=== PATIENT | female | born 1965 | race Caucasian/White ===

== ENCOUNTER → 2016-08-24 | Outpatient (CLI) | payer OTHER ==
--- NOTE | 2016-08-24 10:58 | US ---
EXAMINATION TYPE: US pelvic complete DATE OF EXAM: 08/24/2016 10:33 AM COMPARISON: Previous study dated 03/13/2015. CLINICAL HISTORY: Previous left ovarian cyst, history of 1 , postmenopausal, 1, para 1. TECHNIQUE: Transvaginal (TV) and Transabdominal (TA) Date of LMP: 5+ years ago EXAM MEASUREMENTS: Uterus: 5.3 x 2.5 x 3.0cm Endometrial Stripe: 0.3cm Right Ovary: not seen Left Ovary: 3.7 x 3.7 x 2.6cm TECHNOLOGIST IMPRESSION: 1. Uterus: Retroverted Slightly heterogeneous without any definite lesions seen at this time 2. Endometrium: wnl 3. Right Ovary: Obscured by overlying bowel gas 4. Left Ovary: 3.1 x 1.9 x 2.9cm cystic area 5. Bilateral Adnexa: wnl 6. Posterior cul-de-sac: small amount of free fluid seen IMPRESSION: Normal pelvic ultrasound. Normal Values: Uterine Length: < 10cm Endometrium: Proliferative (Day 6 ? 14): 4 ? 6mm Secretory (Day 15 ? 28): 7 ? 14mm Post Menopausal (and not symptomatic): up to 8mm Post Menopausal (with vaginal bleeding): upper limits <5mm Post Menopausal with HRT: upper limits 8 - 15mm Post Menopausal with tamoxifen: < 6mm (although 50% of those receiving tamoxifen have been reported t o have thickness >8mm)
== END | disposition home or self-care (01) ==
LOC: RADUSWWP 10:02
PROVIDERS: ATTEND Obstetrics & Gynecology
DX: N83.202 Unspecified ovarian cyst, left side (principal)
CPT/HCPCS: 76830; 76856

== ENCOUNTER → 2016-12-14 | Outpatient (CLI) | payer OTHER ==
--- NOTE | 2016-12-14 16:24 | MR ---
EXAMINATION TYPE: MR lumbar spine wo con DATE OF EXAM: 12/14/2016 12:36 PM COMPARISON: 06/29/2015 HISTORY: lsp disc herniation w/radiculopathy CONTRAST: 0 mL intravenous MultiHance. TECHNIQUE: Multiplanar, multisequence images of the lumbar spine were acquired. FINDINGS: L5-S1: Disc bulge is present without thecal sac compression. No spinal canal stenosis is present. Pr evious central disc bulge appears diminished on the current exam. Neural foramen are patent.. L4-L5: Broad-based disc bulge has moderate anterior thecal sac compression. No AP spinal canal stenos is present. Facet hypertrophy is present. There is moderate left foraminal stenosis. Moderate to harper re right foraminal stenosis present. Some nerve root contact from disc bulging may be present within the spinal canal. Findings appear stable. Previous central subligamentous disc herniation is diminish ed in size. L3-L4: Broad-based disc bulge is present. No spinal canal stenosis is present. Neural foramen are pat ent. L2-L3: Broad-based disc bulge is present. No spinal canal stenosis. No foraminal stenosis. Facet h ypertrophy is present. Some left ligamentum flavum laxity is present.. L1-L2: Left paracentral disc bulge is present. Subligamentous disc extension is present. No cord cont act is evident. No spinal canal stenosis present. Facet hypertrophy of ligamentum flavum laxity is pr esent. Findings are similar to previous exam. T12-L1: There is a tiny right paracentral disc herniation. No spinal canal stenosis present. Neural f oramen are patent. IMPRESSION: 1. 1. Multilevel disc bulges and disc herniations. There is slight diminished size of the thecal sac com pression when compared to 2014. 2. Subligamentous Disc herniations include L1-L2 and L4-5. These appear smaller than comparison 2014. 3. Moderate left and severe right foraminal stenosis L4-5 due to disc bulging. Some impingement of th e exiting nerve root on the left at L4-5 may be present. Correlate with radicular symptoms.
== END | disposition home or self-care (01) ==
LOC: RADMRIMAIN 12:01
PROVIDERS: ATTEND Psychiatry & Neurology Neurology
DX: M99.73 Connective tissue and disc stenosis of intervertebral foramina of lumbar region (principal); M51.16 Intervertebral disc disorders with radiculopathy, lumbar region
CPT/HCPCS: 72148

== ENCOUNTER → 2017-01-17 | Outpatient (CLI) | payer OTHER ==
--- NOTE | 2017-01-17 13:38 | CT ---
EXAMINATION TYPE: CT abdomen wo/w con DATE OF EXAM: 01/17/2017 1:26 PM HISTORY: Alcoholic cirrhosis of liver w/o ascites CT DLP: 1049mGycm Automated Exposure Control for Dose Reduction was Utilized. CONTRAST: CT scan of the abdomen is performed with oral and without and with IV Contrast, patient injected with 100 mL of Omnipaque 300. COMPARISON: None. FINDINGS: Exam is slightly suboptimal as dedicated liver protocol was not utilized, first phase of im aging has contrast in the portal vein and is too late thus for hepatic arterial phase imaging. LUNG BASES: No significant abnormality is appreciated. LIVER/GB: Liver is somewhat small in size with lobulated peripheral nodular contour, imaging characte ristics is consistent with known underlying cirrhosis. No significant biliary dilatation is noted. N o obvious suspicious solid or cystic masses are identified. Main and right and left hepatic portal ve ins appear patent. Hepatic veins appear patent draining into IVC. No surrounding ascites is noted. PANCREAS: No significant abnormality is seen. SPLEEN: Spleen measures 12.1 cm on long axis on coronal image 52 within normal limits ADRENALS: No significant abnormality is seen. KIDNEYS: No significant abnormality is seen. BOWEL: No significant abnormality is seen. LYMPH NODES: No greater than 1cm abdominal lymph nodes are appreciated. There are prominent but subce ntimeter lymph nodes in the retroperitoneum with heterogeneous fat stranding near level of aorta and IVC, etiology uncertain. Area can be followed. OSSEOUS STRUCTURES: There is multilevel spurring and disc space narrowing with vacuum disc phenomenon throughout the visualized thoracolumbar spine, findings most pronounced at L4-L5 level. OTHER: There is mild to moderate calcified aftereffect change of aorta extending into pelvic branch v essels. IMPRESSION: Slightly suboptimal study, cirrhotic liver without obvious worrisome mass or ductal dilat ation identified. No ascites is evident currently.
[2017-01-17 14:02] LABS: Anisocytosis Slight; CH 31.3; CHCM 31.9; HCT 38.4 % (34.0-46.0); HDW 2.45; HGB 12.4 gm/dL (11.4-16.0); MCH 31.8 pg (25.0-35.0); MCHC 32.2 g/dL (31.0-37.0); MCV 98.7 fL (80.0-100.0); Macrocytosis Slight; Mean Platelet Volume 7.3; RBC 3.89 m/uL (3.80-5.40); RDW 17.4 % (11.5-15.5); WBC 4.4 k/uL (3.8-10.6)
[2017-01-17 14:06] LABS: ALT 49 U/L (9-52); AST 85 U/L (14-36); Alkaline Phosphatase 117 U/L (38-126); Anion Gap 11 mmol/L; Blood Urea Nitrogen 13 mg/dL (7-17); Calcium 9.3 mg/dL (8.4-10.2); Carbon Dioxide 24 mmol/L (22-30); Chloride 99 mmol/L (98-107); Glucose 91 mg/dL (74-99); Non-African American GFR(MDRD) >60 (>60 ml/min/1.73 sqM); Potassium 3.7 mmol/L (3.5-5.1); Sodium 134 mmol/L (137-145); Total Protein 7.1 g/dL (6.3-8.2)
== END | disposition home or self-care (01) ==
LOC: RADCTMAIN 11:56
DX: K74.60 Unspecified cirrhosis of liver (principal)
CPT/HCPCS: 80053; 85027; 74170; 36415; Q9967

== ENCOUNTER → 2017-03-21 | Outpatient (CLI) | payer OTHER ==
--- NOTE | 2017-03-23 10:27 | MM ---
Reason for exam: screening (asymptomatic). Last mammogram was performed 1 year ago. History: Patient is postmenopausal and had first child at age 37. Took hormonal contraceptives for 5 years beginning at age 38. Physical Findings: A clinical breast exam by your physician is recommended on an annual basis and results should be correlated with mammographic findings. MG Screening Mammo w CAD Bilateral CC and MLO view(s) were taken. Prior study comparison: March 17, 2016, bilateral MG screening mammo w CAD. March 02, 2015, bilateral MG screening mammo w CAD. February 28, 2014, bilateral MG screening mammo w CAD. There are scattered fibroglandular densities. No significant changes when compared with prior studies. ASSESSMENT: Negative, BI-RAD 1 RECOMMENDATION: Routine screening mammogram of both breasts in 1 year.
== END | disposition home or self-care (01) ==
LOC: RADMAMWWP 10:11
PROVIDERS: ATTEND Family Medicine
DX: Z12.31 Encounter for screening mammogram for malignant neoplasm of breast (principal)

== ENCOUNTER → 2017-03-28 | Outpatient (CLI) | payer OTHER ==
--- NOTE | 2017-03-28 19:55 | MR ---
EXAMINATION TYPE: MR cervical spine wo con DATE OF EXAM: 03/28/2017 COMPARISON: NONE HISTORY: Neck pain x3 months TECHNIQUE: Multiplanar, multisequence images of the cervical spine were acquired. Bone marrow signal is within n ormal limits. There is reversal of the usual cervical lordosis with a focal kyphosis from C3 through C7 with the apex at C4-C5 intervertebral disc space. Cervical cord maintains normal signal. Visualize d portions of the posterior fossa are unremarkable. Lumbar vertebral body heights are maintained. C2-C3: No evidence for degenerative disc disease. No disc bulge/herniation or protrusion. No Canal stenosis. Foramina are patent bilaterally. C3-C4: There is slight disc uncovering from the reversal of the usual cervical lordosis with narrowin g of the ventral subarachnoid space, however there is preservation of CSF anterior to the cervical co rd and no significant spinal canal stenosis is present. C4-C5: There is a left paracentral disc herniation extending into the lateral recess and left neural foramen creating moderate left neural foraminal narrowing. This is superimposed upon a broad-based di sc bulge and there is resultant mild spinal canal stenosis with obliteration of the ventral subarachn oid CSF. Disc bulge abuts the cervical cord without abnormal signal of the cervical cord. No right ne uroforaminal narrowing. Ligamentum flavum buckling also contributes to mild spinal canal stenosis. C5-C6: Disc osteophyte complex and uncovertebral hypertrophy creating mild bilateral neural foraminal narrowing and minimally narrow the ventral subarachnoid space however there is preservation of CSF a nterior to the cervical cord. However there is ligamentum flavum buckling, mildly narrowing the spina l canal. C6-C7: No evidence for degenerative disc disease. No disc bulge/herniation or protrusion. No Canal stenosis. Foramina are patent bilaterally. C7-T1: No evidence for degenerative disc disease. No disc bulge/herniation or protrusion. No Canal stenosis. Foramina are patent bilaterally. IMPRESSION: 1. Left paracentral disc herniation at C4-C5 extending into the left lateral recess and neural forame n creating moderate left neural foraminal narrowing. Ligamentum flavum buckling and uncovertebral hyp ertrophy contribute to mild central canal stenosis. 2. Mild spinal canal stenosis at C5-C6 secondary to disc osteophyte complex and ligamentum flavum buc megan. 3. Reversal of the usual cervical lordosis from C2-3 through C7 with the apex at the C4-C5 interverte bral disc space.
== END ==
LOC: RADMRIMAIN 16:31
PROVIDERS: ATTEND Psychiatry & Neurology Neurology
DX: M48.02 Spinal stenosis, cervical region (principal); M99.71 Connective tissue and disc stenosis of intervertebral foramina of cervical region; M50.221 Other cervical disc displacement at C4-C5 level
CPT/HCPCS: 72141

== ENCOUNTER → 2017-08-10 | Outpatient (CLI) | payer OTHER ==
[2017-08-10 13:42] LABS: ALT 54 U/L (9-52); AST 145 U/L (14-36); Alkaline Phosphatase 199 U/L (38-126); Anion Gap 11 mmol/L; Blood Urea Nitrogen 5 mg/dL (7-17); Calcium 9.1 mg/dL (8.4-10.2); Carbon Dioxide 25 mmol/L (22-30); Chloride 103 mmol/L (98-107); Glucose 97 mg/dL (74-99); Non-African American GFR(MDRD) >60 (>60 ml/min/1.73 sqM); Potassium 3.9 mmol/L (3.5-5.1); Sodium 139 mmol/L (137-145); Total Bilirubin 0.5 mg/dL (0.2-1.3); Total Protein 7.7 g/dL (6.3-8.2)
[2017-08-10 14:06] LABS: Basophils % (A) 1 %; CH 33.8; CHCM 32.3; Eosinophils # (A) 0.1 k/uL (0-0.7); Eosinophils % (A) 2 %; HCT 40.7 % (34.0-46.0); HDW 2.36; HGB 12.9 gm/dL (11.4-16.0); Luc # (Auto) 0.09; Luc % (Auto) 2; Lymphocytes # (A) 0.9 k/uL (1.0-4.8); Lymphocytes % (A) 22 %; MCH 33.2 pg (25.0-35.0); MCHC 31.6 g/dL (31.0-37.0); MCV 105.3 fL (80.0-100.0); Macrocytosis Moderate; Mean Platelet Volume 6.8; Monocytes # (A) 0.4 k/uL (0-1.0); Monocytes % (A) 9 %; Neutrophils # (A) 2.8 k/uL (1.3-7.7); Neutrophils % (A) 65 %; RBC 3.87 m/uL (3.80-5.40); RDW 14.8 % (11.5-15.5); WBC 4.3 k/uL (3.8-10.6); WBC (Perox) 4.13
== END | disposition home or self-care (01) ==
LOC: LABWHC1 12:50
DX: K70.30 Alcoholic cirrhosis of liver without ascites (principal)
CPT/HCPCS: 36415; 80053; 82105; 85025

== ENCOUNTER → 2017-10-16 | Outpatient (CLI) | payer OTHER ==
--- NOTE | 2017-10-16 07:31 | CT ---
EXAMINATION TYPE: CT brain wo con DATE OF EXAM: 10/16/2017 COMPARISON: NONE INDICATION: Head injury, concussion DLP: 1121 mGycm, Automated exposure control for dose reduction was used. CONTRAST: None CT of the brain is performed utilizing 3 mm thick sections through the posterior fossa and 3 mm thick sections through the remaining calvarium. Study is performed within 24 hours of arrival to the hosp [facility]. No abnormal hyperdensity is present to suggest an acute intracranial hemorrhage. No mass lesion is evident. No acute infarcts are evident. Ventricles and sulci are mildly diffusely prominent for the patient age. Paranasal sinuses and mastoid air cells within the [id number] are clear. No temporal horn dilatati on is evident. IMPRESSIONS: 1. Mild atrophy.
== END ==
LOC: RADCTMAIN 07:03
PROVIDERS: ATTEND Psychiatry & Neurology Neurology
DX: Z09 Encounter for follow-up examination after completed treatment for conditions other than malignant neoplasm (principal); G31.9 Degenerative disease of nervous system, unspecified; Z87.820 Personal history of traumatic brain injury
CPT/HCPCS: 70450

== ENCOUNTER → 2018-06-28 | Outpatient (CLI) | payer OTHER ==
--- NOTE | 2018-06-28 14:15 | US ---
EXAMINATION TYPE: US abdomen complete DATE OF EXAM: 06/28/2018 COMPARISON: CT abdomen January 17, 2017 CLINICAL HISTORY: K70.31 Alcoholic cirrhosis of liver with ascites. Hx of ascites EXAM MEASUREMENTS: Liver Length: 16.2 cm Gallbladder Wall: 0.3 cm CBD: 0.4 cm CHD: 0.4 cm Spleen: 12.3 cm Right Kidney: 9.0 x 5.1 x 4.5 cm Left Kidney: 9.7 x 4.8 x 4.1 cm Pancreas: Appears heterogenous Liver: appears lobular in appearance., no prominent masses or lesions seen Gallbladder: sludge seen- best visualized LLD Evidence for sonographic Tucker's sign: neg CBD: wnl CHD: wnl Spleen: Upper limits of normal Right Kidney: wnl Left Kidney: wnl Upper IVC: wnl Abd Aorta: Mid and distal portion obscured by overlying bowel gas Small amount of free fluid seen adjacent to liver The visualized liver is heterogeneously hyperechoic with lobulated peripheral contour. Evaluation fo r focal masses is suboptimal due to the heterogeneity. No intrahepatic ductal dilatation is seen. Fin ding is consistent with known underlying cirrhosis. Trace adjacent ascites is noted. The intrahepatic portion of the IVC and visualized proximal abdominal aorta are within normal limits. There is no ev idence of shadowing mobile cholelithiasis. Dependent nonshadowing mobile density consistent with slu dge is present. Common bile duct is unremarkable. The visualized portions of the pancreas is heterog eneous without suspicious mass or ductal dilatation. The spleen is upper limits of normal in size. Kidneys are symmetric and free of hydronephrosis. No renal lesions are seen. IMPRESSION: Redemonstration of cirrhotic liver with trace perihepatic ascites
== END | disposition home or self-care (01) ==
LOC: RADUSWWP 08:53
DX: K74.60 Unspecified cirrhosis of liver (principal)
CPT/HCPCS: 76700

== ENCOUNTER → 2018-07-18 | Outpatient (CLI) | payer OTHER ==
[2018-07-18 11:49] VITALS: BP 84/65; PULSE 85; RESP 18
--- NOTE | 2018-07-18 14:42 | P.PAINPG ---
Subjective Progress Note Date: 07/18/18 Principal diagnosis: Lumbar radiculopathy, cervical radiculopathy, alcoholism This is a 52-year-old woman who is referred to our clinic by an orthopedic spine surgeon. She was referred for treatment of her lumbar and cervical spine. She reports pain in her back which radiates down her legs at time. She does reports significant pain in her neck. She denies bowel or bladder dysfunction. Her pain intensity worse with activity. Objective - Vital Signs Vital signs: Vital Signs Temp Pulse 85 07/18/18 11:36 Resp 18 07/18/18 11:36 BP 84/65 07/18/18 11:36 Pulse Ox 100 07/18/18 11:36 Intake & Output 07/17/18 07/18/18 07/18/18 18:59 06:59 18:59 Weight 61.235 kg - Exam General: The patient is quite sleepy for this appointment today. Upon entering the exam room she is somewhat difficult to arouse from her sleep. She talks with somewhat of a disheveled voice. There is a smell of alcohol in the room.. Cardiac: Heart is regular in rate and rhythm Respiratory: Clear to auscultation. No audible wheezes. Abdomen: Soft nontender nondistended. Musculoskeletal: Strength is normal bilaterally in the upper and lower extremities. Sensation is normal bilaterally in the upper and lower extremities. Reflexes are preserved and symmetric bilaterally. Straight leg raise is negative bilaterally. Assessment and Plan (1) Lumbar radiculopathy Narrative/Plan: Plan of Care 1. Medications: No medications we prescribed for this patient today. 2. Interventions: Patient may be a candidate for a lumbar or cervical epidural steroid injection. 3. Referrals: None 4. Testing: I have ordered blood work for this patient. I want to assess for a possible bleeding problem secondary to her significant drinking history and liver dysfunction. I will also check her alcohol level. If she has been drinking prior to this appointment, which she denied when I asked her, she will be discharged from our practice and we will not perform any procedures for her. 5. Follow-up: We will schedule the patient for a lumbar epidural steroid injection to be performed at L4 5. Current Visit: Yes Status: Acute Code(s): M54.16 - RADICULOPATHY, LUMBAR REGION SNOMED Code(s): 740210617 (2) Cervical radiculopathy Current Visit: Yes Status: Acute Code(s): M54.12 - RADICULOPATHY, CERVICAL REGION SNOMED Code(s): 37258554 (3) Alcoholic cirrhosis of liver Current Visit: Yes Status: Acute Code(s): K70.30 - ALCOHOLIC CIRRHOSIS OF LIVER WITHOUT ASCITES SNOMED Code(s): 420598877 PQRS Measure Charge Sheet Measure #130: Documentation of Current Meds in Medical Chart: Patient not eligible for medications to be documented Measure #226: Tobacco Use: Screen & Cessation Intervention: Pt screened for tobacco use AND intervention given Measure #111: Pneumonia Vaccination: Pneumococcal vaccine NOT administered or previously given Measure #47: Advance Care Plan: Advance care planning discussed & documented, pt chose/unable to give Measure #412: Opioid Treatment Agreement: No documentation of signed opioid treatment agreement Measure #408: Opioid Therapy Follow-up Evaluation: Patient had NO f/u eval minimum every 3 months during opioid therapy Measure #317: Preventitive Care & Scrn High Bld Press & F/U: Normal blood pressure, f/u not required Measure #128: Body Mass Index (BMI) Screening & Follow-up: BMI documented within normal parameters Measure #131: Pain Assessment & Follow-up: Pain positive & plan documented Measure #431: Unhealthy Alcohol Use Preventative Care & Scrn: Patient not identified as an unhealthy alcohol user PQRS Narrative: Smoking Status Current every day smoker Do You Want the Pneumonia Vaccine Up to Date Vaccine AT THIS TIME? Blood Pressure 84/65 Pain Intensity [Lower Back] 5 Pain Intensity [Neck] 6 Hx Alcohol Use (MH) No Home Medications: Ambulatory Orders Gabapentin [Neurontin] 400 mg PO TID 01/01/15 amLODIPine [Norvasc] 2.5 mg PO QAM 01/01/15 traZODone HCL [Desyrel] 100 mg PO HS 01/01/15 Albuterol Inhaler [Ventolin Hfa Inhaler] PRN 07/18/18 Furosemide [Lasix] 40 mg PO DAILY 07/18/18 Multivitamin [Multivitamins Adult Gummies] 1 tab PO DAILY 07/18/18 Spironolactone [Aldactone] 50 mg PO DAILY 07/18/18 Topiramate [Trokendi Xr] 125 mg PO DAILY 07/18/18 Controlled Substance Measures - Controlled Substance Measures Is patient prescribed a controlled substance at discharge?: No
[2018-07-18 14:46] LABS: ALT 38 U/L (9-52); AST 78 U/L (14-36); Albumin 3.6 g/dL (3.5-5.0); Alkaline Phosphatase 120 U/L (38-126); Anion Gap 9 mmol/L; Bilirubin, Delta 0.4 mg/dL (0.0-0.2); Blood Urea Nitrogen 9 mg/dL (7-17); Calcium 8.7 mg/dL (8.4-10.2); Carbon Dioxide 21 mmol/L (22-30); Chloride 109 mmol/L (98-107); Glucose 92 mg/dL (74-99); Potassium 3.7 mmol/L (3.5-5.1); Sodium 139 mmol/L (137-145); Total Bilirubin 0.4 mg/dL (0.2-1.3)
[2018-07-18 14:56] LABS: Anisocytosis Slight; Basophils % (A) 1 %; Eosinophils # (A) 0.1 k/uL (0-0.7); Eosinophils % (A) 3 %; HCT 35.1 % (34.0-46.0); Hypochromasia Moderate; Lymphocytes # (A) 1.2 k/uL (1.0-4.8); Lymphocytes % (A) 31 %; MCH 31.9 pg (25.0-35.0); MCHC 31.3 g/dL (31.0-37.0); MCV 101.9 fL (80.0-100.0); Macrocytosis Moderate; Mean Platelet Volume 7.5; Monocytes # (A) 0.4 k/uL (0-1.0); Monocytes % (A) 11 %; Neutrophils % (A) 51 %; Platelet Count 107 k/uL (150-450); RBC 3.45 m/uL (3.80-5.40); RDW 18.2 % (11.5-15.5); WBC 3.9 k/uL (3.8-10.6)
[2018-07-19 14:14] LABS: Alcohol 258 mg/dL
== END ==
LOC: PNWHC3 11:16
PROVIDERS: ATTEND Pain Medicine Pain Medicine
DX: M54.16 Radiculopathy, lumbar region (principal); M54.12 Radiculopathy, cervical region; K70.30 Alcoholic cirrhosis of liver without ascites; F17.200 Nicotine dependence, unspecified, uncomplicated; Z79.899 Other long term (current) drug therapy
CPT/HCPCS: 80053; 80076; 85025; 82105; G0480; G0463; 80320; 99211

== ENCOUNTER 2018-10-02 20:30 | Emergency (ER) | payer OTHER ==
[2018-10-02 20:50] VITALS: TEMP 97
--- NOTE | 2018-10-02 21:36 | ED ---
Fall HPI - General Chief Complaint: Fall Stated Complaint: ETOH Fall Source: patient, EMS Mode of arrival: EMS - History of Present Illness Initial Comments: Patient is a 53-year-old female who presents the emergency department today for evaluation of possible injury after a fall. Per the patient she had been drinking vodka earlier in the day, this evening she states that she was home with her When she fell down wooden stairs. Patient believes she fell down 2 stairs she does not recall the fall she does not recall if she lost consciousness she's been ambulatory since the fall. She denies taking any aspirin or other antiplatelet or anticoagulant medications. - Related Data Home Medications Medication Instructions Recorded Confirmed Gabapentin [Neurontin] 400 mg PO TID 01/01/15 10/02/18 amLODIPine [Norvasc] 2.5 mg PO QAM 01/01/15 10/02/18 traZODone HCL [Desyrel] 100 mg PO HS 01/01/15 10/02/18 Albuterol Inhaler [Ventolin Hfa 2 puff INHALATION RT-Q6H PRN 07/18/18 10/02/18 Inhaler] Multivitamin [Multivitamins Adult 1 tab PO DAILY 07/18/18 10/02/18 Gummies] Spironolactone [Aldactone] 50 mg PO DAILY 07/18/18 10/02/18 Topiramate [Trokendi Xr] 100 mg PO DAILY 07/18/18 10/02/18 Allergies Allergy/AdvReac Type Severity Reaction Status Date / Time No Known Allergies Allergy Verified 10/02/18 21:36 Review of Systems ROS Statement: Those systems with pertinent positive or pertinent negative responses have been documented in the HPI. ROS Other: All systems not noted in ROS Statement are negative. Past Medical History Past Medical History: Blood Disorder, COPD, Hyperlipidemia, Hypertension, Osteoarthritis (OA) Additional Past Medical History / Comment(s): CHRONIC SINUS WITH WEATHER CHANGES , AUG 2014 LOW PLATELETS- SEES DR. FRANKS . HX FX 3 LT RIBS & 1 RT RIB FX,CT SCAN SHOWED MILD THICKENING OF DISTAL ESOPHAGUS, HAS PAIN LT LEG CONTINUOUS- ARTHRITIS IN LOWER BACK,STEROID INJ MAR 2016,PM History of Any Multi-Drug Resistant Organisms: None Reported Past Surgical History: Section, Joint Replacement, Orthopedic Surgery Additional Past Surgical History / Comment(s): 2002,ORIF LT ANKLE/lt hip replacement 2017 Past Anesthesia/Blood Transfusion Reactions: No Reported Reaction Smoking Status: Current every day smoker - Past Family History Mother Family Medical History: Liver Disease Additional Family Medical History / Comment(s): @ AGE 49 OF CIRRHOSIS Father Family Medical History: CVA/TIA Additional Family Medical History / Comment(s): PACEMAKER General Exam - General Exam Comments Initial Comments: GENERAL: Patient appears older than stated age, is laughing inappropriately noted to have bruising in multiple places HENT: Abrasion over the bridge of the nose, bruising to bilateral eyelids TMs normal bilaterally no hemotympanum No obvious trauma to the posterior scalp no scalp lacerations no hematomas noted on the scalp Dentures in place with no dental injury EYES: The sclera were anicteric and conjunctiva were pink and moist. Extraocular movements were intact and pupils were equal round and reactive to light. Eyelids were unremarkable. PULMONARY: Unlabored respirations. Good breath sounds bilaterally. No audible rales rhonchi or wheezing was noted. CARDIOVASCULAR: There is a regular rate and rhythm without any murmurs gallops or rubs. ABDOMEN: Soft and nontender with normal bowel sounds. SKIN: Contusions to face, contusions to left hip with large underlying hematoma Scratches on bilateral arms well-healing Abrasion and contusion to right knee NEUROLOGIC: Patient is alert and oriented to person and able to identify that she is in an emergency Department, confused about the day and date confused about events leading up to hospitalization unable to provide a definitive history of her fall Moving all extremities spontaneously with normal strength Slurred speech MUSCULOSKELETAL: Normal extremities with adequate strength and full range of motion. No lower extremity swelling or edema. No calf tenderness. Large hematoma to left hip dark bruising appears older than 3 hours old LYMPHATICS: No significant lymphadenopathy is noted PSYCHIATRIC: Normal psychiatric evaluation. Limitations: no limitations Limitations: altered mental status, physical limitation Course Vital Signs 10/02/18 10/02/18 20:43 23:10 Temperature 97 F L Pulse Rate 75 79 Respiratory 14 14 Rate Blood Pressure 118/88 127/77 O2 Sat by Pulse 100 98 Oximetry Medical Decision Making - Medical Decision Making The patient was seen and evaluated history was obtained from the patient The patient reports that she is currently intoxicated she has been drinking vodka she is confused about events leading up to hospitalization she believes she fell down 2 wooden stairs has been ambulatory since then complains of pain all over Patient is in a c-collar Trauma workup was ordered Labs reveal elevated creatinine kinase, mildly elevated AST and ALT consistent with alcohol abuse, serum alcohol level 275 CT brain and cervical spine with no acute intracranial injury or cervical spine injury there is a contusion to the left temporal region CT of the chest abdomen and pelvis reveal multiple injuries and multiple possible ages of these injuries, of note there's a clavicular head fracture, likely old's sternal fracture, multiple rib fractures multiple thoracic compression fractures and an acute sacral fracture Review of patient's medical record reveals that she was evaluated by pain management for chronic back pain in June 2018, at that time there is no comment of history of compression fractures Given patient's multiple injuries, history of alcohol abuse and my concern that she is not safe at home I do feel she warrants admission for further evaluation , given that the patient does have obvious head injury and altered mental status I feel she should be transferred to a facility with neurology and neurosurgical capabilities. Patient care was discussed with ER physician at [facility] Dr. Rosa accepts transfer. Patient continued to sleep comfortably with no complaints. Updated on plan for transfer. - Lab Data Result diagrams: 10/02/18 21:19 10/02/18 21:19 Lab Results 10/02/18 10/02/18 10/02/18 Range/Units 21:19 21:19 21:19 WBC 5.6 (3.8-10.6) k/uL RBC 3.92 (3.80-5.40) m/uL Hgb 11.8 (11.4-16.0) gm/dL Hct 38.1 (34.0-46.0) % MCV 97.2 (80.0-100.0) fL MCH 30.1 (25.0-35.0) pg MCHC 31.0 (31.0-37.0) g/dL RDW 17.3 H (11.5-15.5) % Plt Count 185 (150-450) k/uL Neutrophils % 53 % Lymphocytes % 34 % Monocytes % 8 % Eosinophils % 3 % Basophils % 1 % Neutrophils # 2.9 (1.3-7.7) k/uL Lymphocytes # 1.9 (1.0-4.8) k/uL Monocytes # 0.5 (0-1.0) k/uL Eosinophils # 0.2 (0-0.7) k/uL Basophils # 0.1 (0-0.2) k/uL Hypochromasia Slight Anisocytosis Slight Macrocytosis Slight PT (9.0-12.0) sec INR (<1.2) APTT (22.0-30.0) sec Sodium 147 H (137-145) mmol/L Potassium 3.7 (3.5-5.1) mmol/L Chloride 114 H (98-107) mmol/L Carbon Dioxide 18 L (22-30) mmol/L Anion Gap 15 mmol/L BUN 10 (7-17) mg/dL Creatinine 0.67 (0.52-1.04) mg/dL Est GFR (CKD-EPI)AfAm >90 (>60 ml/min/1.73 sqM) Est GFR (CKD-EPI)NonAf >90 (>60 ml/min/1.73 sqM) Glucose 77 (74-99) mg/dL Calcium 8.5 (8.4-10.2) mg/dL Total Bilirubin 0.8 (0.2-1.3) mg/dL AST 80 H (14-36) U/L ALT 55 H (9-52) U/L Alkaline Phosphatase 130 H (38-126) U/L Total Creatine Kinase 260 H (30-135) U/L CK-MB (CK-2) 3.7 H (0.0-2.4) ng/mL CK-MB (CK-2) Rel Index 1.4 Troponin I <0.012 (0.000-0.034) ng/mL Total Protein 7.0 (6.3-8.2) g/dL Albumin 3.8 (3.5-5.0) g/dL Urine Color Urine Appearance (Clear) Urine pH (5.0-8.0) Ur Specific [place] (1.001-1.035) Urine Protein (Negative) Urine Glucose (UA) (Negative) Urine Ketones (Negative) Urine Blood (Negative) Urine Nitrite (Negative) Urine Bilirubin (Negative) Urine Urobilinogen (<2.0) mg/dL Ur Leukocyte Esterase (Negative) Urine RBC (0-5) /hpf Urine WBC (0-5) /hpf Ur Squamous Epith Cells (0-4) /hpf Hyaline Casts (0-2) /lpf Urine Mucus (None) /hpf Urine Opiates Screen (NotDetected) Ur Oxycodone Screen (NotDetected) Urine Methadone Screen (NotDetected) Ur Propoxyphene Screen (NotDetected) Ur Barbiturates Screen (NotDetected) U Tricyclic Antidepress (NotDetected) Ur Phencyclidine Scrn (NotDetected) Ur Amphetamines Screen (NotDetected) U Methamphetamines Scrn (NotDetected) U Benzodiazepines Scrn (NotDetected) Urine Cocaine Screen (NotDetected) U Marijuana (THC) Screen (NotDetected) Serum Alcohol 275 H* mg/dL Blood Type Blood Type Recheck Antibody Screen Spec Expiration Date 10/02/18 10/02/18 10/02/18 Range/Units 21:19 21:19 21:52 WBC (3.8-10.6) k/uL RBC (3.80-5.40) m/uL Hgb (11.4-16.0) gm/dL Hct (34.0-46.0) % MCV (80.0-100.0) fL MCH (25.0-35.0) pg MCHC (31.0-37.0) g/dL RDW (11.5-15.5) % Plt Count (150-450) k/uL Neutrophils % % Lymphocytes % % Monocytes % % Eosinophils % % Basophils % % Neutrophils # (1.3-7.7) k/uL Lymphocytes # (1.0-4.8) k/uL Monocytes # (0-1.0) k/uL Eosinophils # (0-0.7) k/uL Basophils # (0-0.2) k/uL Hypochromasia Anisocytosis Macrocytosis PT 11.3 (9.0-12.0) sec INR 1.1 (<1.2) APTT 26.8 (22.0-30.0) sec Sodium (137-145) mmol/L Potassium (3.5-5.1) mmol/L Chloride (98-107) mmol/L Carbon Dioxide (22-30) mmol/L Anion Gap mmol/L BUN (7-17) mg/dL Creatinine (0.52-1.04) mg/dL Est GFR (CKD-EPI)AfAm (>60 ml/min/1.73 sqM) Est GFR (CKD-EPI)NonAf (>60 ml/min/1.73 sqM) Glucose (74-99) mg/dL Calcium (8.4-10.2) mg/dL Total Bilirubin (0.2-1.3) mg/dL AST (14-36) U/L ALT (9-52) U/L Alkaline Phosphatase (38-126) U/L Total Creatine Kinase (30-135) U/L CK-MB (CK-2) (0.0-2.4) ng/mL CK-MB (CK-2) Rel Index Troponin I (0.000-0.034) ng/mL Total Protein (6.3-8.2) g/dL Albumin (3.5-5.0) g/dL Urine Color Yellow Urine Appearance Clear (Clear) Urine pH 5.5 (5.0-8.0) Ur Specific [place] 1.009 (1.001-1.035) Urine Protein Trace H (Negative) Urine Glucose (UA) Negative (Negative) Urine Ketones 1+ H (Negative) Urine Blood Trace H (Negative) Urine Nitrite Negative (Negative) Urine Bilirubin Negative (Negative) Urine Urobilinogen 2.0 (<2.0) mg/dL Ur Leukocyte Esterase Negative (Negative) Urine RBC 1 (0-5) /hpf Urine WBC 2 (0-5) /hpf Ur Squamous Epith Cells 2 (0-4) /hpf Hyaline Casts 1 (0-2) /lpf Urine Mucus Rare H (None) /hpf Urine Opiates Screen Not Detected (NotDetected) Ur Oxycodone Screen Not Detected (NotDetected) Urine Methadone Screen Not Detected (NotDetected) Ur Propoxyphene Screen Not Detected (NotDetected) Ur Barbiturates Screen Not Detected (NotDetected) U Tricyclic Antidepress Not Detected (NotDetected) Ur Phencyclidine Scrn Not Detected (NotDetected) Ur Amphetamines Screen Not Detected (NotDetected) U Methamphetamines Scrn Not Detected (NotDetected) U Benzodiazepines Scrn Detected H (NotDetected) Urine Cocaine Screen Not Detected (NotDetected) U Marijuana (THC) Screen Not Detected (NotDetected) Serum Alcohol mg/dL Blood Type A Positive Blood Type Recheck No Antibody Screen NEGATIVE Spec Expiration Date 10/05/2018 - 3150 Critical Care Time Critical Care Time: Yes Total Critical Care Time: 20 Disposition Clinical Impression: Alcohol abuse, Alcoholic hepatitis, Thoracic compression fracture, Rib fracture , Sternal fracture, Sacral fracture, closed, Clavicular fracture, Altered mental state, Contusion of face Disposition: OTHER INSTITUTION NOT DEFINED Condition: Serious Is patient prescribed a controlled substance at d/c from ED?: No Referrals: Angela Frazier MD [Primary Care Provider] - 1-2 days - Out of Hospital Transfer - Req. Specs Out of Hospital Transfer - Requested Specifics: Other Emergency Center ([facility])
[2018-10-02 21:41] LABS: Anisocytosis Slight; Basophils # (A) 0.1 k/uL (0-0.2); Basophils % (A) 1 %; Eosinophils # (A) 0.2 k/uL (0-0.7); Eosinophils % (A) 3 %; HCT 38.1 % (34.0-46.0); HGB 11.8 gm/dL (11.4-16.0); Hypochromasia Slight; Lymphocytes # (A) 1.9 k/uL (1.0-4.8); Lymphocytes % (A) 34 %; MCH 30.1 pg (25.0-35.0); MCV 97.2 fL (80.0-100.0); Macrocytosis Slight; Mean Platelet Volume 6.2; Monocytes # (A) 0.5 k/uL (0-1.0); Monocytes % (A) 8 %; Neutrophils # (A) 2.9 k/uL (1.3-7.7); Neutrophils % (A) 53 %; Platelet Count 185 k/uL (150-450); RBC 3.92 m/uL (3.80-5.40); RDW 17.3 % (11.5-15.5); WBC 5.6 k/uL (3.8-10.6)
[2018-10-02 21:44] LABS: INR 1.1 (<1.2); Partial Thromboplastin Time 26.8 sec (22.0-30.0); Prothrombin Time 11.3 sec (9.0-12.0)
[2018-10-02 21:47] LABS: ALT 55 U/L (9-52); AST 80 U/L (14-36); Albumin 3.8 g/dL (3.5-5.0); Alkaline Phosphatase 130 U/L (38-126); Anion Gap 15 mmol/L; Blood Urea Nitrogen 10 mg/dL (7-17); Calcium 8.5 mg/dL (8.4-10.2); Carbon Dioxide 18 mmol/L (22-30); Chloride 114 mmol/L (98-107); Glucose 77 mg/dL (74-99); Potassium 3.7 mmol/L (3.5-5.1); Sodium 147 mmol/L (137-145); Total Bilirubin 0.8 mg/dL (0.2-1.3)
[2018-10-02 21:49] LABS: Alcohol 275 mg/dL; Creatine Kinase 260 U/L (30-135)
[2018-10-02 22:02] LABS: Creatine Kinase MB 3.7 ng/mL (0.0-2.4); Troponin I <0.012 ng/mL (0.000-0.034)
[2018-10-02] MEDS ORDERED: SODIUM CHLORIDE 0.9% 1,000 ML IV ONE (22:09)
[2018-10-02 22:12] LABS: Appearance,Urine Clear (Clear); Bilirubin,Urine Negative (Negative); Blood,Urine Trace (Negative); Color,Urine Yellow; Glucose,Urine (UA) Negative (Negative); Hyaline Casts,Urine 1 /lpf (0-2); Ketones,Urine 1+ (Negative); Leukocyte Esterase,Urine Negative (Negative); Mucus,Urine Rare /hpf; Nitrite,Urine Negative (Negative); PH, Urine 5.5 (5.0-8.0); Protein,Urine Trace (Negative); RBC,Urine 1 /hpf (0-5); Specific Gravity,Urine 1.009 (1.001-1.035); Squamous Epithelial Cell,Urine 2 /hpf (0-4); WBC,Urine 2 /hpf (0-5)
[2018-10-02 22:20] LABS: Amphetamine Screen,Urine Not Detected (NotDetected); Barbiturate Screen,Urine Not Detected (NotDetected); Benzodiazepines Screen,Urine Detected (NotDetected); Cocaine Screen,Urine Not Detected (NotDetected); Methadone Screen, Urine Not Detected (NotDetected); Opiate Screen,Urine Not Detected (NotDetected); Oxycodone Screen, Urine Not Detected (NotDetected); Phencyclidine Screen,Urine Not Detected (NotDetected); Tricyclic Antidepressant,Urine Not Detected (NotDetected); Urn Cannabinoid Scrn Not Detected (NotDetected)
--- NOTE | 2018-10-02 23:42 | XR ---
EXAM: XR Chest, 1 View CLINICAL HISTORY: Reason: trauma TECHNIQUE: Frontal view of the chest. COMPARISON: No relevant prior studies available. FINDINGS: Lungs: Lungs are clear of focal infiltrates or consolidations. Pleural space: No evidence of pleural effusion or pneumothorax. Heart: Heart size is upper limits of normal. Mediastinum: Mediastinal structures are unremarkable. Bones/joints: Multiple bilateral rib fractures which appear subacute or chronic. IMPRESSION: No evidence of acute cardiopulmonary disease.
--- NOTE | 2018-10-02 23:45 | XR ---
EXAM: XR Pelvis, 1 view CLINICAL HISTORY: Reason: Trauma TECHNIQUE: Frontal view of the pelvis. COMPARISON: None available FINDINGS: Bones/joints: No acute fracture or dislocation identified. Previous left hip arthroplasty. Other findings: Contrast identified in segments of nondilated right ureter and partially opacified bladder related to prior IV contrast administration. IMPRESSION: No acute fracture or dislocation identified. Status post previous left hip arthroplasty.
--- NOTE | 2018-10-03 00:18 | CT ---
EXAM: CT Head Without Intravenous Contrast CLINICAL HISTORY: Reason: falls, facial bruising, neck pain, altered TECHNIQUE: Axial computed tomography images of the head/brain without intravenous contrast. CTDI is 45.2 mGy and DLP is 1246 mGy-cm. This CT exam was performed using one or more of the following dose reduction techniques: automated exposure control, adjustment of the mA and/or kV according to patient size, and/or use of iterative reconstruction technique. COMPARISON: None available FINDINGS: Artifacts: Beam hardening CT artifact. Brain: No definite evidence of acute transcortical cerebral infarction or intracranial hemorrhage. No abnormal mass effect or midline shift. No abnormal extra-axial collections. Mild cerebral atrophy. Ventricles: Unremarkable. Bones/joints: No skull fracture identified. Soft tissues: Left frontal scalp soft tissue swelling/hematoma. Left temporal scalp soft tissue swelling. Sinuses: Imaged paranasal sinuses are clear except for mild right maxillary sinus mucosal thickening. Mastoid air cells: Mastoid sinuses are clear. IMPRESSION: No definite evidence of acute intracranial abnormality. EXAM: CT Cervical Spine Without Intravenous Contrast CLINICAL HISTORY: Reason: falls, facial bruising, neck pain, altered TECHNIQUE: Axial computed tomography images of the cervical spine without intravenous contrast. CTDI is 15.2 mGy and DLP is 731.7 mGy-cm. This CT exam was performed using one or more of the following dose reduction techniques: automated exposure control, adjustment of the mA and/or kV according to patient size, and/or use of iterative reconstruction technique. COMPARISON: None available FINDINGS: Vertebrae: Mild reversal of normal cervical lordosis and C3-4 anterolisthesis of approximately 3.5 mm. Cervical vertebral height and alignment are otherwise within normal limits. No evidence of acute cervical fracture or dislocation. Discs/spinal canal/neural foramina: Advanced multilevel cervical disc disease, spondylosis and facet joint arthropathy. Other bones/joints: Fracture involving right clavicular head. Soft tissues: No abnormal prevertebral soft tissue thickening. IMPRESSION: No evidence of acute cervical fracture or dislocation. Right clavicular head fracture. [employer] 10/03/18 00:30 Verify Receipt Verified receipt with Dr. Fernández
--- NOTE | 2018-10-03 00:48 | CT ---
EXAM: CT Chest With Intravenous Contrast CLINICAL HISTORY: Reason: fall down stairs, altered TECHNIQUE: Axial computed tomography images of the chest with intravenous contrast. CTDI is 7.8 mGy and DLP is 226.5 mGy-cm. This CT exam was performed using one or more of the following dose reduction techniques: automated exposure control, adjustment of the mA and/or kV according to patient size, and/or use of iterative reconstruction technique. COMPARISON: None available FINDINGS: Lungs: No evidence of acute pulmonary parenchymal disease or pulmonary contusion. Pleural space: No evidence of pleural effusion or pneumothorax. Heart: Heart size upper limits of normal. Coronary arterial calcifications. No significant pericardial effusion Bones/joints: Nondisplaced inferior sternal fracture which is probably chronic. Multiple mild thoracic vertebral compression fractures throughout the thoracic spine which are of indeterminate age and may be chronic. Multiple bilateral rib fractures which appear subacute or chronic. Mildly impacted right clavicular head fracture of indeterminate age-clinical correlation recommended. Vasculature: No thoracic aortic aneurysm or evidence of dissection. Lymph nodes: No pathologically enlarged lymphadenopathy. No evidence of mediastinal hematoma. IMPRESSION: No evidence of acute intrathoracic injury. Multiple bony findings as described in body of report including multiple bilateral rib fractures, inferior sternal fracture, right clavicular head fracture and multiple thoracic vertebral compression fractures. EXAM: CT Abdomen and Pelvis With Intravenous Contrast CLINICAL HISTORY: Reason: fall down stairs, altered TECHNIQUE: Axial computed tomography images of the abdomen and pelvis with intravenous contrast. CTDI is 7.4 mGy and DLP is 505.2 mGy-cm. This CT exam was performed using one or more of the following dose reduction techniques: automated exposure control, adjustment of the mA and/or kV according to patient size, and/or use of iterative reconstruction technique. COMPARISON: CT abdomen-pelvis 01/17/2017 FINDINGS: Mediastinum: Small hiatal hernia. ABDOMEN: Liver: Hepatic morphology suggestive of cirrhosis. Hepatic fatty infiltration. No focal hepatic abnormalities or evidence of hepatic laceration. Gallbladder and bile ducts: Cholelithiasis with small calcified gallstone. No evidence of biliary dilatation. Pancreas: Pancreas is unremarkable. Spleen: Spleen is unremarkable. Adrenals: No adrenal masses. Kidneys and ureters: No evidence of renal calculi or hydronephrosis. Bilateral perinephric stranding Stomach and bowel: No evidence of bowel obstruction or pneumoperitoneum. PELVIS: Appendix: Appendix not clearly identified. Bladder: Urinary bladder appears unremarkable although partially obscured by metallic artifact. Reproductive: 3.6 cm left ovarian cyst. ABDOMEN and PELVIS: Intraperitoneal space: No abnormal free fluid or evidence of hemoperitoneum. Bones/joints: No evidence of lumbar vertebral compression fracture. Mildly displaced S4 sacral fracture which may be acute. Additional inferior sacral fracture without any significant displacement. Status post previous left hip arthroplasty with associated metallic artifact. Vasculature: Moderate calcific atherosclerotic disease. No abdominal aortic aneurysm. Lymph nodes: No lymphadenopathy identified. IMPRESSION: No evidence of acute [id number] injury. Evidence of cirrhosis and hepatic fatty infiltration. Cholecystolithiasis. Sacral fractures as described in body of report. Left ovarian cyst. Pelvic ultrasound may be considered for further evaluation. [employer] 10/03/18 00:54 Verify Receipt Verified receipt with Deja for Dr. Fernández on 10/03 00:54 (-05:00)
--- NOTE | 2018-10-03 01:00 | CT ---
EXAM: CT Maxillofacial Without Intravenous Contrast CLINICAL HISTORY: Reason: fall bruising TECHNIQUE: Axial computed tomography images of the face without intravenous contrast. CTDI is 45.2 mGy and DLP is 1246 mGy-cm. This CT exam was performed using one or more of the following dose reduction techniques: automated exposure control, adjustment of the mA and/or kV according to patient size, and/or use of iterative reconstruction technique. COMPARISON: None available FINDINGS: Bones/joints: No evidence of facial or orbital fracture. No displaced or depressed nasal fracture. Soft tissues: Left facial soft tissue swelling. Mild bilateral periorbital soft tissue swelling. Sinuses: Paranasal sinuses are clear except for mild right maxillary sinus mucosal thickening. Frontal sinuses are hypoplastic. IMPRESSION: No evidence of acute facial fracture. Left facial and mild bilateral periorbital soft tissue swelling. Mild right maxillary sinus mucosal thickening.
[2018-10-03 01:47] VITALS: BP 126/88; PULSE 102; RESP 18
== END 2018-10-03 02:05 | disposition other institution (70) ==
LOC: EC 20:30
DX: S22.000A Wedge compression fracture of unspecified thoracic vertebra, initial encounter for closed fracture (principal); S22.43XA Multiple fractures of ribs, bilateral, initial encounter for closed fracture; S42.033A Displaced fracture of lateral end of unspecified clavicle, initial encounter for closed fracture; S22.20XA Unspecified fracture of sternum, initial encounter for closed fracture; S32.10XA Unspecified fracture of sacrum, initial encounter for closed fracture; S00.11XA Contusion of right eyelid and periocular area, initial encounter; S00.12XA Contusion of left eyelid and periocular area, initial encounter; S80.01XA Contusion of right knee, initial encounter; S70.02XA Contusion of left hip, initial encounter; K70.10 Alcoholic hepatitis without ascites; F10.129 Alcohol abuse with intoxication, unspecified; R41.82 Altered mental status, unspecified; J44.9 Chronic obstructive pulmonary disease, unspecified; E78.5 Hyperlipidemia, unspecified; I10 Essential (primary) hypertension; M19.90 Unspecified osteoarthritis, unspecified site; F17.200 Nicotine dependence, unspecified, uncomplicated; Z79.899 Other long term (current) drug therapy; Z96.642 Presence of left artificial hip joint; W10.9XXA Fall (on) (from) unspecified stairs and steps, initial encounter; Y92.009 Unspecified place in unspecified non-institutional (private) residence as the place of occurrence of the external cause
CPT/HCPCS: 36415; 93005; 86900; 86901; 80053; 82550; 82553; 84484; 85025; 85610; 85730; 86850; 81001; 80306; 72170; 71045; 72125; 70486; 70450; 71260; 74177; 99285; 96360; 96361 ×2; G0480; Q9967; 80320